=== PATIENT | female | born 1965 | race Two or more races ===

== ENCOUNTER 2017-10-14 07:52 | Emergency (ER) | payer OTHER ==
[~2017-10-14] VITALS: Ht 165.1 cm; Wt 68.0 kg
--- NOTE | 2017-10-14 08:00 | NUR ---
BBRA [id number] FROM WORK FOR DIZZINES W/ N/V X THIS AM, PATIENT STATING HX OF VERTIGO. A/OX 4. BREATHING EVEN AND UNLABORED. NO NEURO DEFICITS NOTED. VITALS STABLE. SAFETY AND COMFORT MEASURES IN PLACE. AWAITING MD ORDERS.
[2017-10-14] MEDS ORDERED: METOCLOPRAMIDE HCL 10 MG/2 ML VIAL ONE (08:07)
[2017-10-14 08:20] LABS: BASOPHILS % (AUTO) 0.3 % (0.0-2.0); EOSINOPHILS # (AUTO) 0.1 /CMM (0.0-0.7); EOSINOPHILS % (AUTO) 0.9 % (0.0-6.0); HEMATOCRIT 42 % (33-45); HEMOGLOBIN 14.2 g/dL (11.5-14.8); LYMPHOCYTES # (AUTO) 1.6 /CMM (0.8-4.8); LYMPHOCYTES % (AUTO) 18.1 % (20.0-44.0); MEAN CORPUSCULAR HEMOGLOBIN 30 PG (26.0-33.0); MEAN CORPUSCULAR HGB CONC 34 g/dl (31.0-36.0); MEAN CORPUSCULAR VOLUME 88 fL (82-100); MONOCYTES # (AUTO) 0.2 /CMM (0.1-1.30); MONOCYTES % (AUTO) 1.7 % (2.0-12.0); NEUTROPHILS # (AUTO) 7.2 /CMM (1.8-8.9); PLATELET COUNT (AUTO) 238 /CMM (150-450); RDW COEFFICIENT OF VARIATION 12.4 (11.5-15.0); RED BLOOD CELL COUNT(AUTO) 4.72 MIL/uL (4.0-5.2); WHITE BLOOD COUNT (AUTO) 9.1 K/uL (4.3-11.0)
--- NOTE | 2017-10-14 08:21 | NUR ---
NEW IV STARTED ON LAC, 20 G. BLOOD DRAWN AND SENT TO LAB. PATIENT MEDICATED PER MD ORDERS.
--- NOTE | 2017-10-14 08:28 | NUR ---
PATIENT TAKEN TO CT IN STABLE CONDITION.
[2017-10-14] MEDS ORDERED: IV NS 0.9% 1,000 ML BAG IV ONE (08:30)
[2017-10-14] MEDS ORDERED: METOCLOPRAMIDE HCL 10 MG/2 ML VIAL IV ONE (08:30)
[2017-10-14 08:31] LABS: CALCIUM, SERUM 9.4 mg/dL (8.5-10.1); CARBON DIOXIDE 29 mmol/L (21-32); CHLORIDE 104 mmol/L (98-107); CREATININE 0.7 mg/dL (0.6-1.3); GLUCOSE 165 mg/dL (74-106); POTASSIUM 3.8 mmol/L (3.5-5.1); SODIUM SERUM 142 mmol/L (136-145); UREA NITROGEN, BLOOD 20 mg/dL (7-18)
--- NOTE | 2017-10-14 08:39 | NUR ---
PATIENT RETURNED FROM CT.
[2017-10-14 08:43] LABS: TROPONIN I < 0.017 ng/mL (0.00-0.056)
--- NOTE | 2017-10-14 08:55 | NUR ---
PATIENT STATING SHE FEELS MUCH BETTER, WITH NO DIZZINESS AT THIS TIME. IVF STILL RUNNING, VSS, WILL MONITOR.
--- NOTE | 2017-10-14 09:28 | NUR ---
IV removed. Catheter intact and site benign. Pressure and 4x4 applied to site. No bleeding noted.Patient discharged to home in stable condition. Written and verbal after care instructions given. Patient verbalizes understanding of instruction.
[2017-10-14 09:29] VITALS: BP 107/76
== END 2017-10-14 09:32 | disposition home or self-care (01) ==
LOC: ER 07:59
DX: R42 Dizziness and giddiness (principal); R51 Headache
CPT/HCPCS: 36415; 70450; 80048; 84484; 85025; 93005; 96361; 96374; 99285; A4606; J2765; J7030; Z7610